=== PATIENT | male | born 1985 | race Caucasian/White ===

== ENCOUNTER 2022-01-09 19:29 | Emergency (ER) | payer OTHER ==
[2022-01-09 19:57] LABS: HEMOGLOBIN 15.2 gm/dl (14.0-17.5); RED BLOOD COUNT 4.88 M/UL (4.20-5.50); WHITE BLOOD COUNT 9.6 K/UL (4.5-11.0)
[2022-01-09 20:46] LABS: BUN/CREATININE RATIO 45 (0-10)
== END 2022-01-10 03:38 | disposition home or self-care (01) ==
LOC: ER1 19:29
PROVIDERS: Emergency Medicine
DX: R07.89 Other chest pain (principal); F15.10 Other stimulant abuse, uncomplicated; F17.210 Nicotine dependence, cigarettes, uncomplicated; Z20.822 Contact with and (suspected) exposure to COVID-19
CPT/HCPCS: 71045; 80053; 80307; 81001; 82550; 82553; 84484; 85025; 93005; 99285; U0002